=== PATIENT | male | born 1975 | race Caucasian/White ===

== ENCOUNTER 2022-12-14 11:12 | Emergency (ER) | payer SELFPAY ==
[~2022-12-14] VITALS: Ht 167.6 cm; Wt 68.2 kg
[2022-12-14 11:18] VITALS: BP 117/75
== END 2022-12-14 12:02 | disposition home or self-care (01) ==
LOC: EMS 11:16
DX: L84 Corns and callosities (principal); F17.210 Nicotine dependence, cigarettes, uncomplicated
CPT/HCPCS: 99281; Z7502